=== PATIENT | male | born 1995 | race Caucasian/White ===

== ENCOUNTER 2018-08-11 04:12 | Emergency (ER) | payer BC ==
[2018-08-11] MEDS ORDERED: Ondansetron 4 MG/2 ML SDV IVPUSH ONE (04:41)
[2018-08-11] MEDS ORDERED: Alum Hydrox/Mag Hydrox/Simeth 30 ML, Lidocaine 2% 15 ML PO STA ×2 (04:41)
[2018-08-11] MEDS ORDERED: Sodium Chloride 0.9% 1,000 ML IV ONE (04:41)
--- NOTE | 2018-08-11 04:42 | EDM.PDOC ---
ED HPI GENERAL MEDICAL PROBLEM - General Chief Complaint: Drug or Alcohol Abuse Stated Complaint: POSS alcohol poisoning Time Seen by Provider: 08/11/18 04:25 Source of Information: Reports: Patient, RN Notes Reviewed, Significant Other ( Fiance) History Limitations: Reports: No Limitations - History of Present Illness INITIAL COMMENTS - FREE TEXT/NARRATIVE: The patient states that he drank 6-7 beers last night, then went to bed around 02:00 this morning. He woke up around 02:30, needing to vomit, and has vomited 4 times since. He states that with his last bout of emesis, he developed a burning sore throat. Since then, his face has been feeling numb, he has had involuntary twitches, and he feels short of breath. The patient states that he drinks to excess about once a week, although the last time was about a month ago. He also reports that he has had abdominal pain for about 3 weeks. An ultrasound of his right upper quadrant and blood work were negative. The patient does not have a PCP. Throat Pain Score (Numeric/FACES): 8 - Related Data Allergies Allergy/AdvReac Type Severity Reaction Status Date / Time No Known Allergies Allergy Verified 08/11/18 04:21 Home Meds: Home Meds Omeprazole 20 mg PO DAILY 08/11/18 [History] Ondansetron [Zofran ODT] 1 tab PO Q8H PRN #5 tab.dis 08/11/18 [Rx] Past Medical History Gastrointestinal History: Reports: GERD Endocrine/Metabolic History: Reports: Obesity/BMI 30+ Social & Family History - Tobacco Use Tobacco Use Within Last Twelve Months: Smokeless Tobacco (Chews tobacco sometimes) - Alcohol Use Alcohol Use History: Yes Alcohol Use Frequency: Binges - Recreational Drug Use Recreational Drug Use: No - Living Situation & Occupation Living situation: Reports: Single, with Significant Other (Fiance) 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 ED EXAM, GI/ABD - Physical Exam Exam: See Below Exam Limited By: No Limitations General Appearance: Alert, WD/WN, No Apparent Distress Eyes: Bilateral: Normal Appearance, EOMI Ears: Normal External Exam, Hearing Grossly Normal Nose: Normal Inspection Throat/Mouth: Normal Inspection, Normal Lips, Normal Voice, No Airway Compromise Head: Atraumatic, Normocephalic Neck: Normal Inspection, Full Range of Motion Respiratory/Chest: No Respiratory Distress, Lungs Clear, Normal Breath Sounds, No Accessory Muscle Use Cardiovascular: Normal Peripheral Pulses, Regular Rate, Rhythm, No Edema, No Gallop, No JVD, No Murmur, No Rub GI/Abdominal Exam: Normal Bowel Sounds, Soft, No Organomegaly, No Distention, No Abnormal Bruit, No Mass, Tender (mild, genealized, non-focal), Other (Obese) (Male) Exam: Deferred Rectal (Males) Exam: Deferred Back Exam: Normal Inspection, Full Range of Motion, NT Extremities: Normal Inspection, Normal Range of Motion, No Pedal Edema, Normal Capillary Refill Neurological: Alert, Oriented, Normal Cognition, No Motor/Sensory Deficits Psychiatric: Anxious Skin Exam: Warm, Dry, Intact, Normal Color, No Rash Course - Vital Signs Last Recorded V/S: Last Vital Signs Temp 36.3 C 08/11/18 04:21 Pulse 93 08/11/18 04:21 Resp 16 08/11/18 04:21 BP 142/106 H 08/11/18 04:21 Pulse Ox 97 08/11/18 04:21 - Orders/Labs/Meds Meds: Medications Discontinued Medications Generic Name Dose Route Start Last Admin Trade Name Freq PRN Reason Stop Dose Admin Al Hydroxide/Mg Hydroxide 30 0 ml 08/11/18 04:41 08/11/18 04:52 ml/ Lidocaine HCl 15 ml PO 08/11/18 04:42 45 ml ONETIME STA Administration Sodium Chloride 1,000 mls @ 999 mls/hr 08/11/18 04:41 08/11/18 04:50 Normal Saline IV 08/11/18 05:41 999 mls/hr ONETIME ONE Administration Metoclopramide HCl 10 mg 08/11/18 06:01 08/11/18 06:05 Reglan IVPUSH 08/11/18 06:02 10 mg ONETIME STA Administration Ondansetron HCl 4 mg 08/11/18 04:41 08/11/18 04:51 Zofran IVPUSH 08/11/18 04:42 4 mg ONETIME ONE Administration - Re-Assessments/Exams Free Text/Narrative Re-Assessment/Exam: 08/11/18 04:42 The patient appears to be suffering from some nausea and vomiting after drinking an excessive number of beers last night. The vomiting has caused him to have some esophagitis. I ordered a GI cocktail, IV Zofran, and IV fluid, to see if we can make him feel a bit better. Blood work is not necessary. The patient may also be experiencing some hyperventilation, leading to his face feeling numb, involuntary twitching, and shortness of breath. His symptoms would likely be ameliorated with Ativan, however, given his recent excessive alcohol intake, I don't believe this combination would be gentile. 08/11/18 06:01 The patient's IV fluid has finished infusing, but the patient is complaining of continued nausea. I have ordered Reglan 10 mg IVP. 08/11/18 07:19 The patient states that he feels much better. I will discharge him home with a prescription for Zofran ODT. Departure - Departure Time of Disposition: 07:19 Disposition: Home, Self-Care 01 Condition: Good Clinical Impression: Nausea and vomiting, Excessive consumption of ethanol - Discharge Information *PRESCRIPTION DRUG MONITORING PROGRAM REVIEWED*: Not Applicable *COPY OF PRESCRIPTION DRUG MONITORING REPORT IN PATIENT KALEY: Not Applicable Prescriptions: Ondansetron [Zofran ODT] 1 tab PO Q8H PRN #5 tab.dis PRN Reason: Nausea/Vomiting Instructions: Alcohol Intoxication, [id number], Nausea and Vomiting, Adult, [id number] Referrals: PCP,None [Primary Care Provider] - Additional Instructions: You were seen in the emergency room for nausea and vomiting after drinking excessively last night. You were given a GI cocktail, 2 types of antinausea medicine, and IV fluid in the ER, with improvement in your symptoms. A prescription for the antinausea medicine Zofran has [facility], located in the [facility] across [address] from the hospital. Dissolve one tablet of Zofran on your tongue up to every 8 hours, as needed for nausea/vomiting. Stay adequately hydrated. Get plenty of rest today. If any other problems, please do not hesitate to return to the ER.
[2018-08-11] MEDS ORDERED: Ondansetron 4 MG Tab.DIS PO ONE (06:00)
[2018-08-11] MEDS ORDERED: Metoclopramide 10 MG/2 ML SDV IVPUSH STA (06:01)
== END 2018-08-11 07:40 | disposition home or self-care (01) ==
LOC: JD.ED 04:12
DX: R11.2 Nausea with vomiting, unspecified (principal); F10.99 Alcohol use, unspecified with unspecified alcohol-induced disorder; E66.9 Obesity, unspecified; K21.9 Gastro-esophageal reflux disease without esophagitis
CPT/HCPCS: 96361; 96374; 96375; 99283; A9270; J2405; J2765; J7040; 99284